=== PATIENT | female | born 1970 | race Caucasian/White ===

== ENCOUNTER 2019-11-27 14:07 | Emergency (ER) | payer MEDICAID ==
[~2019-11-27] VITALS: Ht 160 cm; Wt 68.5 kg
[2019-11-27 14:20] VITALS: BP 130/75
--- NOTE | 2019-11-27 14:42 | NUR ---
Note kena in EDM - 11/27/19 at 1444 by MED 49 yo female co fatigue and muscle pain for 2 weeks. hx of dm. no meds taken at home.
--- NOTE | 2019-11-27 14:45 | NUR ---
49 yo FEMALE CO OF GENERAL WEAKNESS AND MUSCLE PAIN. HX OF DM. BS WAS 405. NO MEDS AT HOME AND NO HX OTHER THAN DM.
[2019-11-27 15:39] VITALS: BP 130/75
== END 2019-11-27 15:39 | disposition home or self-care (01) ==
LOC: MED 14:07
DX: R07.9 Chest pain, unspecified (principal); R73.9 Hyperglycemia, unspecified; K21.9 Gastro-esophageal reflux disease without esophagitis; F17.210 Nicotine dependence, cigarettes, uncomplicated
CPT/HCPCS: 93005; 99283